=== PATIENT | female | born 1940 | race Caucasian/White ===

== ENCOUNTER 2022-06-11 23:45 | Emergency (ER) | payer MEDICARE ==
[2022-06-12] MEDS ORDERED: Take Home: Acetaminophen/HYDROcodone 325-5 MG, 5 Tab Pack PO ONE (02:00)
== END 2022-06-12 02:17 | disposition home or self-care (01) ==
LOC: VM.ED 23:45
DX: S32.591A Other specified fracture of right pubis, initial encounter for closed fracture (principal); S70.01XA Contusion of right hip, initial encounter; I10 Essential (primary) hypertension; Z72.0 Tobacco use; Z86.73 Personal history of transient ischemic attack (TIA), and cerebral infarction without residual deficits; Z88.0 Allergy status to penicillin; Z79.899 Other long term (current) drug therapy; Z79.02 Long term (current) use of antithrombotics/antiplatelets; Z79.82 Long term (current) use of aspirin; W01.0XXA Fall on same level from slipping, tripping and stumbling without subsequent striking against object, initial encounter
CPT/HCPCS: 73502; 99283; A9270